=== PATIENT | female | born 1985 | race Caucasian/White ===

== ENCOUNTER 2016-12-09 11:15 | Day surgery (SDC) | payer MEDICAID ==
[~2016-12-09 11:15] MED LIST: PROPOFOL INJ 200 MG/20 ML VIAL IV ONE
--- NOTE | 2016-12-09 12:32 | Operative Report ---
Operative Report DATE OF SURGERY: 12/09/16 Operative Report: The risks benefits and alternatives of the procedure explained to the patient in detail and informed consent is obtained that GIF Olympus video scope was inserted into the patient's mouth and hypopharynx the esophagus is identified intubated and insufflated the scope was then advanced through the esophagus stomach and duodenum retroflexion maneuver is done the esophagus stomach and first and second portions of the duodenum examined PREOPERATIVE DIAGNOSIS: Dysphagia POSTOPERATIVE DIAGNOSIS: Esophagitis, esophageal ulcer with slight stricturing explaining the dysphagia. However the scope was able to pass through the junction no dilation needed to be done. Possible paraesophageal hernia. Gastritis. Duodenitis. Mucosal specimens obtained in the stomach rule out Helicobacter pylori OPERATION: EGD with biopsy SURGEON: KERA AYALA ANESTHESIA: LMAC TISSUE REMOVED OR ALTERED: As noted above COMPLICATIONS: None. ESTIMATED BLOOD LOSS: none INTRAOPERATIVE FINDINGS: No esophageal masses,. No esophageal rings or furrows noted. PROCEDURE: Patient tolerated the procedure well. No immediate postprocedure complications are noted. Patient is discharged in good condition. Discharge date 12/09/2016. Discharge diet: Regular. Discharge activity: Regular. 2-3 week follow-up to discuss findings. We will await on biopsies. Patient is instructed to call the office or proceed to the emergency room should there be any further polyps or questions. She may need upper GI series to confirm unusual anatomy, may need referral for surgery
[2016-12-09 12:50] VITALS: BP 121/92
== END 2016-12-09 12:48 | disposition home or self-care (01) ==
LOC: END 11:15
PROVIDERS: ATTEND Internal Medicine Gastroenterology
PROC: 0DB68ZX Excision of Stomach, Via Natural or Artificial Opening Endoscopic, Diagnostic (ICD-10-PCS; principal; 2016-12-09 14:00)
DX: K29.50 Unspecified chronic gastritis without bleeding (principal); K22.10 Ulcer of esophagus without bleeding; K22.2 Esophageal obstruction; K29.60 Other gastritis without bleeding; E06.3 Autoimmune thyroiditis; I10 Essential (primary) hypertension; E07.9 Disorder of thyroid, unspecified; Z79.899 Other long term (current) drug therapy
CPT/HCPCS: 43239; 88342 ×2; 88305 ×2; J2704; 740

== ENCOUNTER → 2016-12-25 | Outpatient (CLI) | payer MEDICAID | LOC: RAD 12:42 | PROVIDERS: ATTEND Family Medicine | DX: R13.10 Dysphagia, unspecified (principal); E06.5 Other chronic thyroiditis | CPT/HCPCS: 76536 ==

== ENCOUNTER 2017-10-21 11:04 | Emergency (ER) | payer MEDICAID ==
[2017-10-21 11:52] VITALS: BP 134/97
--- NOTE | 2017-10-21 11:57 | ER Document Report ---
ED General - General Chief Complaint: Flu Symptoms Stated Complaint: FLU SYMPTOMS Time Seen by Provider: 10/21/17 11:51 Notes: 32-year-old female here with complaints of cough sore throat body aches fevers chills ongoing for the past 5 days. She was diagnosed with influenza by her primary care doctor's office and was told to alternate Motrin and Tylenol for fever which she has been doing. Since she has been alternating these 2 medicines, her fevers have resolved. She is here today because she is having worsening of her symptoms. No vomiting diarrhea abdominal pain shortness of breath. TRAVEL OUTSIDE OF THE [place] IN LAST 30 DAYS: No - Related Data Allergies/Adverse Reactions: No Known Allergies Allergy (Verified 10/21/17 11:05) Past Medical History - Social History Smoking Status: Current Every Day Smoker Family History: Reviewed & Not Pertinent Patient has suicidal ideation: No Patient has homicidal ideation: No - Past Medical History Cardiac Medical History: Reports: Hx Hypertension - no meds Denies: Hx Coronary Artery Disease, Hx Heart Attack, Hx Heart Murmur Pulmonary Medical History: Denies: Hx Asthma, Hx Bronchitis, Hx COPD, Hx Pneumonia Neurological Medical History: Reports: Hx Migraine. Denies: Hx Cerebrovascular Accident, Hx Seizures Renal/ Medical History: Reports: Hx Kidney Stones - HX. Denies: Hx Peritoneal Dialysis GI Medical History: Reports: Hx Gastroesophageal Reflux Disease, Hx Hiatal Hernia. Denies: Hx Ulcer Musculoskeltal Medical History: Denies Hx Arthritis Psychiatric Medical History: Reports: Hx Depression Denies: Hx Bipolar Disorder, Hx Post Traumatic Stress Disorder, Hx Schizophrenia Infectious Medical History: Denies: Hx HIV Past Surgical History: Reports: Hx Section, Hx Gynecologic Surgery - D+ C, Hx Orthopedic Surgery - R ACL REPAIR. Denies: Hx Hysterectomy, Hx Pacemaker - Immunizations Hx Diphtheria, Pertussis, Tetanus Vaccination: Yes Review of Systems - Review of Systems Notes: See history of present illness for pertinent positive review of systems; otherwise all review of systems have been reviewed and are negative Physical Exam - Vital signs Vitals: Temp Pulse Resp BP Pulse Ox 98.4 F 109 H 20 136/96 H 96 10/21/17 11:14 10/21/17 11:14 10/21/17 11:14 10/21/17 11:14 10/21/17 11:14 - Notes Notes: PHYSICAL EXAMINATION: GENERAL: Appears as if she feels unwell, however in no acute distress. HEAD: Atraumatic, normocephalic. EYES: Pupils equal round and reactive to light, extraocular movements intact, sclera anicteric, conjunctiva are normal. ENT: nares patent, oropharynx clear without exudates. Moist mucous membranes. NECK: Normal range of motion, supple without lymphadenopathy (cervical submandibular submental occipital) LUNGS: CTAB and equal. No wheezes rales or rhonchi. HEART: Minimally tachycardic rate and regular rhythm without murmurs ABDOMEN: Soft, no tenderness. No guarding, no rebound EXTREMITIES: Normal range of motion, no pitting edema. No cyanosis. NEUROLOGICAL: Cranial nerves grossly intact. Normal sensory/motor exams. PSYCH: Normal mood, normal affect. SKIN: Warm, Dry, normal turgor, no rashes or lesions noted Course - Re-evaluation Re-evalutation: 10/21/17 11:57 MEDICAL DECISION MAKING: Concern for upper respiratory infection, most likely viral Instructed patient on fever control with Tylenol and/or (if applicable) Motrin Also discussed keeping hydrated with water or Gatorade Instructed follow-up PCP next day or few Patient understands and agrees to the plan of care - Vital Signs Vital signs: Temp Pulse Resp BP Pulse Ox 99.6 F 109 H 16 134/97 H 98 10/21/17 11:51 10/21/17 11:51 10/21/17 11:51 10/21/17 11:51 10/21/17 11:51 Discharge - Discharge Clinical Impression: Flu-like symptoms Condition: Good Disposition: HOME, SELF-CARE Additional Instructions: You have an upper respiratory infection, most likely viral. Control fever with Motrin and Tylenol. Another option is you may control the fever with Tylenol and meloxicam however do not use meloxicam and Motrin at the same time. The meloxicam is a strong pain medicine. The Tessalon is prescription strength cough medicine. Stay hydrated. You were seen in the emergency department at [facility]. If you were given any sedating medications, be sure not to operate heavy machinery (example - driving) and be sure you are not too sedated to walk appropriately. Please followup with your primary physician in the next few days for further management/evaluation. Please return to the emergency department for worsening of symptoms or any symptom that you deem to be concerning or life-threatening. Thank you for allowing us to be part of your care. Prescriptions: Benzonatate [Tessalon Perle 100 mg Capsule] 100 mg PO Q8HP PRN #40 cap PRN Reason: Meloxicam [Mobic] 15 mg PO DAILY #7 tablet
== END 2017-10-21 11:56 | disposition home or self-care (01) ==
LOC: ER 11:04
DX: R05 Cough (principal); J02.9 Acute pharyngitis, unspecified; R50.9 Fever, unspecified; R00.0 Tachycardia, unspecified; I10 Essential (primary) hypertension; F17.200 Nicotine dependence, unspecified, uncomplicated
CPT/HCPCS: 99283

== ENCOUNTER → 2017-10-26 | Outpatient (CLI) | payer MEDICAID ==
[2017-10-26 16:59] LABS: ABSOLUTE EOSINOPHILS # (AUTO) 0.1 10^3/uL (0.0-0.6); ABSOLUTE LYMPHOCYTES (AUTO) 2.1 10^3/uL (0.5-4.7); ABSOLUTE MONOCYTES (AUTO) 0.5 10^3/uL (0.1-1.4); ABSOLUTE NEUT (AUTO) 5.3 10^3/uL (1.7-8.2); BASOPHILS % (AUTO) 0.5 % (0-2); EOSINOPHILS % (AUTO) 0.6 % (0-6); HEMATOCRIT 43.8 % (36.0-47.0); HEMOGLOBIN 14.5 g/dL (12.0-15.5); LYMPHOCYTES % (AUTO) 26.5 % (13-45); MEAN CORPUSCULAR HEMOGLOBIN 28.9 pg (27.0-33.4); MEAN CORPUSCULAR HGB CONC 33.2 g/dL (32.0-36.0); MEAN CORPUSCULAR VOLUME 87 fl (80-97); MONOCYTES % (AUTO) 6.6 % (3-13); PLATELET COUNT 367 10^3/uL (150-450); RED BLOOD COUNT 5.02 10^6/uL (3.72-5.28); RED CELL DISTRIBUTION WIDTH 13.2 % (11.5-14.0); SEGMENTED NEUTROPHILS % (AUTO) 65.8 % (42-78); TOTAL CELLS COUNTED % (AUTO) 100 %; WHITE BLOOD COUNT 8.1 10^3/uL (4.0-10.5)
[2017-10-26 17:15] LABS: ANION GAP 9 (5-19); BLOOD UREA NITROGEN 14 mg/dL (7-20); CARBON DIOXIDE 26 mmol/L (22-30); CHLORIDE 107 mmol/L (98-107); GLUCOSE 113 mg/dL (75-110); POTASSIUM 3.9 mmol/L (3.6-5.0); SODIUM 142.1 mmol/L (137-145)
[2017-10-26 17:28] LABS: A TYPE INFLUENZA AG NEGATIVE (NEGATIVE); B INFLUENZA AG NEGATIVE (NEGATIVE)
--- NOTE | 2017-10-26 17:29 | RADIOLOGY REPORT (SQ) ---
EXAM DESCRIPTION: CHEST PA/LAT COMPLETED DATE/TIME: 10/26/2017 5:13 pm REASON FOR STUDY: RESPIRATORY DISTRESS COMPARISON: None. TECHNIQUE: Frontal and lateral radiographic views of the chest acquired. NUMBER OF VIEWS: Two view. LIMITATIONS: None. FINDINGS: LUNGS AND PLEURA: No opacities, masses or pneumothorax. No pleural effusion. MEDIASTINUM AND HILAR STRUCTURES: No masses or contour abnormalities. HEART AND VASCULAR STRUCTURES: Heart normal size. No evidence for failure. BONES: No acute findings. HARDWARE: None in the chest. OTHER: No other significant finding. IMPRESSION: NO SIGNIFICANT RADIOGRAPHIC FINDING IN THE CHEST. TECHNICAL DOCUMENTATION: JOB ID: [id number] [employer]- All Rights Reserved
== END ==
LOC: LAB 16:27
PROVIDERS: ATTEND Emergency Medicine
DX: R06.03 Acute respiratory distress (principal); R07.81 Pleurodynia
CPT/HCPCS: 36415; 71046; 80048; 85025; 87804

== ENCOUNTER 2017-10-28 08:48 | Observation (INO) | payer MEDICAID ==
[2017-10-28] MEDS ORDERED: NORMAL SALINE 1000 ML 1,000 ML IV ONE (09:03)
--- NOTE | 2017-10-28 09:16 | ER Document Report ---
ED General - General Chief Complaint: Upper Abdominal Pain Stated Complaint: ABDOMINAL PAIN Time Seen by Provider: 10/28/17 09:03 Notes: Patient complains of left upper quadrant pain. She has been having intermittent left upper quadrant pain with coughing since she was diagnosed with the flu a few days ago. She does not denies chest pain but feels like it is making her short of breath. This morning she had a coughing fit and it felt "very warm and washed over me with extreme pain." She took a Valium after that. She has been treated with amoxicillin clavulanic acid for unknown bacterial infection but says that her chest x-ray at the clinic was normal. She has a remote history of abdominal hernia on the opposite side but no other abdominal problems. She vomited once this morning and it looks pink but she has just had cough syrup and she denies hematemesis melena or bright red blood per rectum. EMS brought her in. Her blood pressure on arrival to the room was 70 systolic. History of tubal ligation TRAVEL OUTSIDE OF THE [place] IN LAST 30 DAYS: No - Related Data Allergies/Adverse Reactions: Sulfa (Sulfonamide Antibiotics) Adverse Reaction (Mild, Verified 10/28/17 08:52) Nausea Past Medical History - Social History Smoking Status: Current Every Day Smoker Smoking Education Provided: Yes - The patient ED visit today was directly related to their abuse of tobacco. Family History: Reviewed & Not Pertinent - Past Medical History Cardiac Medical History: Reports: Hx Hypertension - no meds Denies: Hx Coronary Artery Disease, Hx Heart Attack, Hx Heart Murmur Pulmonary Medical History: Denies: Hx Asthma, Hx Bronchitis, Hx COPD, Hx Pneumonia Neurological Medical History: Reports: Hx Migraine. Denies: Hx Cerebrovascular Accident, Hx Seizures Renal/ Medical History: Reports: Hx Kidney Stones - HX. Denies: Hx Peritoneal Dialysis GI Medical History: Reports: Hx Gastroesophageal Reflux Disease, Hx Hiatal Hernia. Denies: Hx Ulcer Musculoskeltal Medical History: Denies Hx Arthritis Psychiatric Medical History: Reports: Hx Depression Denies: Hx Bipolar Disorder, Hx Post Traumatic Stress Disorder, Hx Schizophrenia Infectious Medical History: Denies: Hx HIV Past Surgical History: Reports: Hx Section, Hx Gynecologic Surgery - D+ C, Hx Orthopedic Surgery - R ACL REPAIR. Denies: Hx Hysterectomy, Hx Pacemaker - Immunizations Hx Diphtheria, Pertussis, Tetanus Vaccination: Yes Review of Systems - Review of Systems Notes: REVIEW OF SYSTEMS GEN: Denies fever, chills, weight loss ENT: Denies sore throat, nasal discharge, ear pain EYES: Denies blurry vision, eye pain, discharge CV: Denies chest pain, palpitations, edema RESP: Cough shortness of breath no wheezing GI: Left upper abdominal pain, vomiting MSK: Denies joint pain/swelling, edema, SKIN: Denies rash, skin lesions LYMPH: Denies swollen glands/lymph nodes NEURO: Denies headache, focal weakness or numbness, dizziness PSYCH: Denies depression, suicidal or homicidal ideation PHYSICAL EXAMINATION General: Ill-appearing Head: Atraumatic, normocephalic ENT: Mouth normal, oropharynx dry, no exudates or tonsillar enlargement Eyes: Conjunctiva normal, pupils equal, lids normal Neck: No JVD, supple, no guarding CVS: Normal rate, regular rhythm, no murmurs Resp: No resp distress, equal and normal breath sounds bilaterally GI: Nondistended, soft, exquisite epigastric and left upper quadrant tenderness to palpation, no rebound or guarding Ext: No deformities, no edema, normal range of motion in upper and lower ext Back: No CVA or midline TTP Skin: No rash, warm Lymphatic: No lymphadeopathy noted Neuro: Awake, alert. Face symmetric. GCS 15. Physical Exam - Vital signs Vitals: Temp Pulse Resp BP Pulse Ox 97.6 F 75 20 71/44 L 94 10/28/17 08:55 10/28/17 08:55 10/28/17 08:55 10/28/17 08:55 10/28/17 08:55 Course - Re-evaluation Re-evalutation: 10/28/17 09:15 Called to the bedside to evaluate the patient secondary to hypotension. Mental status normal considering she had Valium. Blood pressure at the bedside initially was 70, but is increased to 99 systolic with no intervention. Patient has extreme abdominal tenderness. It is left-sided. Differential includes gastritis GI bleed, perforation, traumatic injury such as rectus or abdominal wall hematoma less likely pneumothorax or PE given no chest pain per se, normal breath sounds. Also could be pneumonia and sepsis given recent flu. Sepsis order set initiated. Type and screen added. Chest x-ray will be ordered. IV fluid empirically. 10/28/17 09:58 Ultrasound performed. Ultrasound clearly shows a large left rectus sheath hematoma. No free fluid in the abdomen seen. Spoke with radiology and asked them to get delayed imaging. 10/28/17 11:42 Patient remained hemodynamic Vincent stable. Pain is controlled with fentanyl. CT shows large rectus sheath hematoma with no active extravasation. Discussed with surgical list Dr. Huston who previously indicated he would admit if there is no extravasation. On my second conversation he was in the OR and said that he would come down and see the patient, and I let him not be putting in for an op spread to the surgical floor. - Vital Signs Vital signs: Temp Pulse Resp BP Pulse Ox 97.6 F 75 15 102/76 94 10/28/17 08:55 10/28/17 08:55 10/28/17 09:26 10/28/17 09:26 10/28/17 09:26 - Laboratory Result Diagrams: 10/28/17 09:37 10/28/17 09:37 Laboratory results interpreted by me: 10/28/17 10/28/17 09:37 09:37 WBC 12.7 H Seg Neutrophils % 84.7 H Lymphocytes % 11.2 L Absolute Neutrophils 10.7 H Glucose 169 H ALT 58 H - Diagnostic Test Radiology reviewed: Image reviewed, Reports reviewed - EKG Interpretation by Me EKG shows normal: Sinus rhythm Rate: Normal Rhythm: NSR When compared to previous EKG there are: Previous EKG unavailable - There are T- wave inversions in V3 V4 V5 and V6. There are no ST elevations. There is no ST depression. Procedures - Ultrasound/Bedside Ultrasound/Bedside Time completed: 09:56 Ultrasound: Abnormal aorta Notes: 10/28/17 09:58 No abdominal free fluid. Large left rectus sheath hematoma with mixed density hypoechoic hyperechoic fluid Critical Care Note - Critical Care Note Total time excluding time spent on procedures (mins): 33 Comments: The above patient is critically ill. Not including procedures, but including direct re-evaluations, speaking with patient and/or consultants, interpreting results, and documenting, I spent the total amount of minute listed listed above on critical care time Discharge - Discharge Clinical Impression: Traumatic rectus hematoma Qualifiers: Encounter type: initial encounter Qualified Code(s): S30.1XXA - Contusion of abdominal wall, initial encounter Condition: Fair Disposition: ADMITTED OBSERVATION Admitting Provider: Surgicalist Unit Admitted: Surgical Floor
[2017-10-28 09:53] LABS: VENOUS BLOOD BASE EXCESS -1.4 mmol/L; VENOUS BLOOD HCO3 25.9 mmol/L (20-32); VENOUS BLOOD PCO2 54.4 mmHg (35-63); VENOUS BLOOD PH 7.3 (7.30-7.42)
[2017-10-28 09:54] LABS: ABSOLUTE EOSINOPHILS # (AUTO) 0.1 10^3/uL (0.0-0.6); ABSOLUTE LYMPHOCYTES (AUTO) 1.4 10^3/uL (0.5-4.7); ABSOLUTE MONOCYTES (AUTO) 0.4 10^3/uL (0.1-1.4); ABSOLUTE NEUT (AUTO) 10.7 10^3/uL (1.7-8.2); BASOPHILS % (AUTO) 0.2 % (0-2); EOSINOPHILS % (AUTO) 0.6 % (0-6); HEMATOCRIT 38.9 % (36.0-47.0); HEMOGLOBIN 12.9 g/dL (12.0-15.5); LYMPHOCYTES % (AUTO) 11.2 % (13-45); MEAN CORPUSCULAR HEMOGLOBIN 29.2 pg (27.0-33.4); MEAN CORPUSCULAR HGB CONC 33.1 g/dL (32.0-36.0); MEAN CORPUSCULAR VOLUME 88 fl (80-97); MONOCYTES % (AUTO) 3.3 % (3-13); PLATELET COUNT 426 10^3/uL (150-450); RED CELL DISTRIBUTION WIDTH 13.2 % (11.5-14.0); SEGMENTED NEUTROPHILS % (AUTO) 84.7 % (42-78); TOTAL CELLS COUNTED % (AUTO) 100 %; WHITE BLOOD COUNT 12.7 10^3/uL (4.0-10.5)
[2017-10-28 09:59] LABS: PROTHROMBIN TIME 12.8 SEC (11.4-15.4)
[2017-10-28] MEDS ORDERED: FENTANYL CITRATE INJ/PF 100 MCG/2 ML AMPUL IV ONE (10:08)
[2017-10-28 10:14] LABS: ALANINE AMINOTRANSFERASE 58 U/L (9-52); ALBUMIN 3.8 g/dL (3.5-5.0); ALKALINE PHOSPHATASE 115 U/L (38-126); ANION GAP 12 (5-19); ASPARTATE AMINO TRANSFERASE 29 U/L (14-36); BILIRUBIN,DIRECT 0.1 mg/dL (0.0-0.4); BILIRUBIN,TOTAL 0.3 mg/dL (0.2-1.3); BLOOD UREA NITROGEN 11 mg/dL (7-20); CALCIUM 8.9 mg/dL (8.4-10.2); CARBON DIOXIDE 23 mmol/L (22-30); CHLORIDE 105 mmol/L (98-107); GLUCOSE 169 mg/dL (75-110); SODIUM 139.7 mmol/L (137-145); TOTAL PROTEIN 6.3 g/dL (6.3-8.2)
--- NOTE | 2017-10-28 10:28 | RADIOLOGY REPORT (SQ) ---
EXAM DESCRIPTION: CHEST SINGLE VIEW COMPLETED DATE/TIME: 10/28/2017 10:17 am REASON FOR STUDY: h/o PNA, hypoxia COMPARISON: 10/26/2017 EXAM PARAMETERS: NUMBER OF VIEWS: One view. TECHNIQUE: Single frontal radiographic view of the chest acquired. RADIATION DOSE: NA LIMITATIONS: None. FINDINGS: LUNGS AND PLEURA: No opacities, masses or pneumothorax. No pleural effusion. MEDIASTINUM AND HILAR STRUCTURES: No masses. Contour normal. HEART AND VASCULAR STRUCTURES: Heart normal in size. Normal vasculature. BONES: No acute findings. HARDWARE: None in the chest. OTHER: No other significant finding. IMPRESSION: NO ACUTE RADIOGRAPHIC FINDING IN THE CHEST. TECHNICAL DOCUMENTATION: JOB ID: [id number] [employer]- All Rights Reserved
--- NOTE | 2017-10-28 11:18 | RADIOLOGY REPORT (SQ) ---
EXAM DESCRIPTION: CT ABD/PELVIS WITH IV ONLY COMPLETED DATE/TIME: 10/28/2017 11:05 am REASON FOR STUDY: LUQ PAIN< HYPOTENSION COMPARISON: None. TECHNIQUE: CT scan of the abdomen and pelvis performed using helical scanning technique with dynamic intravenous contrast injection. No oral contrast. Images reviewed with lung, soft tissue, and bone windows. Reconstructed coronal and sagittal MPR images reviewed. Delayed images for evaluation of the urinary system also acquired. All images stored on PACS. All CT scanners at this facility use dose modulation, iterative reconstruction, and/or weight based d osing when appropriate to reduce radiation dose to as low as reasonably achievable (ALARA). [facility]: Dose Right [facility]: CareDose [facility]: Dose Right [facility]: Teradose 4D [facility]: [employer] CONTRAST TYPE AND DOSE: contrast/concentration: Isovue 370.00 mg/ml; Total Contrast Delivered: 99.0 ml; Total Saline Delivered: 62.1 ml RENAL FUNCTION: BUN 11 creatinine 0.82. RADIATION DOSE: CT Rad equipment meets quality standard of care and radiation dose reduction techniq ues were employed. CTDIvol: 18.6 - 20.5 mGy. DLP: 3667 mGy-cm.. LIMITATIONS: None. FINDINGS: LOWER CHEST: No significant findings. No nodules or infiltrates. LIVER: Normal size. No masses. No dilated ducts. SPLEEN: Normal size. No focal lesions. PANCREAS: No masses. No significant calcifications. No adjacent inflammation or peripancreatic fluid collections. Pancreatic duct not dilated. GALLBLADDER: No identified stones by CT criteria. No inflammatory changes to suggest cholecystitis. ADRENAL GLANDS: No significant masses or asymmetry. RIGHT KIDNEY AND URETER: No solid masses. No significant calcifications. No hydronephrosis or hyd roureter. LEFT KIDNEY AND URETER: No solid masses. No significant calcifications. No hydronephrosis or hydr oureter. AORTA AND VESSELS: No aneurysm. No dissection. Renal arteries, SMA, celiac without stenosis. RETROPERITONEUM: No retroperitoneal adenopathy, hemorrhage or masses. BOWEL AND PERITONEAL CAVITY: No masses or inflammatory changes. No free fluid or peritoneal masses. APPENDIX: Normal. PELVIS: No mass. No free fluid. Normal bladder. ABDOMINAL WALL: Large hematoma in the left rectus sheath. Maximum AP measurement 8 cm, transverse me asurement 12.5 cm, and craniocaudal measurement 22 cm. No hernias. BONES: No significant or acute findings. OTHER: No other significant finding. IMPRESSION: LARGE LEFT RECTUS SHEATH HEMATOMA. NO OTHER SIGNIFICANT OR ACUTE FINDING IN THE ABDOMEN OR PELVIS ON CT SCAN WITH IV CONTRAST. TECHNICAL DOCUMENTATION: JOB ID: [id number] Quality ID # [id number]: Final reports with documentation of one or more dose reduction techniques (e.g., Au tomated exposure control, adjustment of the mA and/or kV according to patient size, use of iterative reconstruction technique) 2010 [employer]- All Rights Reserved
--- NOTE | 2017-10-28 12:31 | EKG REPORT ---
SEVERITY:- ABNORMAL ECG - SINUS RHYTHM NONSPECIFIC T ABNORMALITIES, DIFFUSE LEADS : Confirmed by: Juno Schwarz MD 28-Oct-2017 12:30:20
[2017-10-28 14:33] LABS: ABSOLUTE BASOPHILS # (AUTO) 0.1 10^3/uL (0.0-0.2); ABSOLUTE LYMPHOCYTES (AUTO) 1.4 10^3/uL (0.5-4.7); ABSOLUTE MONOCYTES (AUTO) 0.5 10^3/uL (0.1-1.4); ABSOLUTE NEUT (AUTO) 12.1 10^3/uL (1.7-8.2); BASOPHILS % (AUTO) 0.4 % (0-2); EOSINOPHILS % (AUTO) 0.1 % (0-6); HEMATOCRIT 35.5 % (36.0-47.0); HEMOGLOBIN 11.9 g/dL (12.0-15.5); LYMPHOCYTES % (AUTO) 9.9 % (13-45); MEAN CORPUSCULAR HGB CONC 33.4 g/dL (32.0-36.0); MEAN CORPUSCULAR VOLUME 87 fl (80-97); MONOCYTES % (AUTO) 3.5 % (3-13); PLATELET COUNT 354 10^3/uL (150-450); RED BLOOD COUNT 4.09 10^6/uL (3.72-5.28); RED CELL DISTRIBUTION WIDTH 13.4 % (11.5-14.0); SEGMENTED NEUTROPHILS % (AUTO) 86.1 % (42-78); TOTAL CELLS COUNTED % (AUTO) 100 %; WHITE BLOOD COUNT 14.1 10^3/uL (4.0-10.5)
[2017-10-28] MEDS ORDERED: HYDROMORPHONE HCL INJ/PF 2 MG/ML AMPULE IV ONE (15:59)
--- NOTE | 2017-10-28 16:50 | PDOC CONSULTATION ---
Consultation Consult Date: 10/28/17 Consult reason:: rectus sheath hematoma History of Present Illness Admission Date/PCP: 10/28/17 11:54 History of Present Illness: ROSS ROMERO is a 32 year old female with a hx of flu symptoms x 1 week; for the past 2 days she has been experiencing left uppr abdominal pain. This morning has had a strong bout of cough and she noted a more intense pain in the same area. She came to the ER this AM and a CT scan A/P was done significant for a left rectal sheath hematoma with no active bleeding or extravasation Past Medical History Cardiac Medical History: Reports: Hypertension - no meds Denies: Coronary Artery Disease, Myocardial Infarction, Heart Murmur Pulmonary Medical History: Denies: Asthma, Bronchitis, Chronic Obstructive Pulmonary Disease (COPD), Pneumonia Neurological Medical History: Reports: Migraine Denies: Seizures GI Medical History: Reports: Gastroesophageal Reflux Disease, Hiatal Hernia Musculoskeltal Medical History: Denies: Arthritis Psychiatric Medical History: Reports: Depression Denies: Bipolar Disorder, Post Traumatic Stress Disorder Hematology: Reports: Anemia Denies: Hemophilia, Sickle Cell Disease Infectious Medical History: Denies: HIV Past Surgical History Past Surgical History: Reports: Section, Orthopedic Surgery - R ACL REPAIR Denies: Hysterectomy, Pacemaker Social History Smoking Status: Current Every Day Smoker Family History Family History: Reviewed & Not Pertinent Parental Family History Reviewed: Yes Children Family History Reviewed: Yes Sibling(s) Family History Reviewed.: Yes Medication/Allergy Home Medications: Buspirone HCl [Buspar 10 mg Tablet] 10 mg PO Q12 10/28/17 Diazepam [Valium 5 mg Tablet] 5 mg PO Q12HP PRN 10/28/17 Levothyroxine Sodium [Synthroid 0.075 mg Tablet] 0.075 mg PO DAILY 10/28/17 Prazosin HCl [Minipress] 1 mg PO QHS 10/28/17 Promethazine HCl [Phenergan 25 mg Tablet] 25 mg PO Q6HP PRN 10/28/17 Temazepam [Restoril] 30 mg PO HSP PRN 10/28/17 Vortioxetine Hydrobromide [Trintellix] 20 mg PO DAILY 10/28/17 Allergies/Adverse Reactions: Sulfa (Sulfonamide Antibiotics) Adverse Reaction (Mild, Verified 10/28/17 08:52) Nausea Physical Exam Vital Signs: Temp Pulse Resp BP Pulse Ox 97.6 F 75 14 111/75 96 10/28/17 08:55 10/28/17 08:55 10/28/17 14:01 10/28/17 14:00 10/28/17 15:00 General appearance: PRESENT: no acute distress, obese Neck exam: PRESENT: full ROM Respiratory exam: PRESENT: clear to auscultation molly Cardiovascular exam: PRESENT: RRR GI/Abdominal exam: PRESENT: soft, tenderness - left upper quadrant Results Laboratory Results: 10/28/17 14:15 10/28/17 14:15 WBC 14.1 H RBC 4.09 Hgb 11.9 L Hct 35.5 L MCV 87 MCH 29.0 MCHC 33.4 RDW 13.4 Plt Count 354 Seg Neutrophils % 86.1 H Lymphocytes % 9.9 L Monocytes % 3.5 Eosinophils % 0.1 Basophils % 0.4 Absolute Neutrophils 12.1 H Absolute Lymphocytes 1.4 Absolute Monocytes 0.5 Absolute Eosinophils 0.0 Absolute Basophils 0.1 Impressions: Chest X-Ray 10/28/17 09:13 IMPRESSION: NO ACUTE RADIOGRAPHIC FINDING IN THE CHEST. Abdomen/Pelvis CT 10/28/17 09:16 IMPRESSION: LARGE LEFT RECTUS SHEATH HEMATOMA. NO OTHER SIGNIFICANT OR ACUTE FINDING IN THE ABDOMEN OR PELVIS ON CT SCAN WITH IV CONTRAST. Assessment & Plan - Plan Summary Plan Summary: A/ Left Rectus sheath hematoma, stable on CT: no active vessel extravasation or "blush" seen patient hemodynamically stable at this timne H/H 12.9/38.9 on admission, H/H 11/9/35.5 after 6 hours P/ As all these confined rectus hematoma invariably stop on their own there is no real treatment Recommend: discharge to home bed rest as tolerated avoid narcotics, Tylenol prn for pain polus ice packs avoid straining/lifting x 2 weeks no NSAIDS (ASA, Motrin, Aleve) Avoid constipation with Miralax or MOM
[2017-10-28] MEDS ORDERED: ONDANSETRON HCL INJ/PF 4 MG/2 ML SDV IV PRN (18:10)
[2017-10-28] MEDS ORDERED: ACETAMINOPHEN 325 MG TABLET PO PRN (18:10)
[2017-10-28] MEDS ORDERED: PROMETHAZINE HCL 25 MG TABLET PO PRN (18:14)
--- NOTE | 2017-10-28 18:33 | PDOC H&P ---
History of Present Illness Admission Date/PCP: 10/28/17 11:54 No PCP Patient complains of: abdominal pain History of Present Illness: ROSS ROMERO is a 32 year old female with PMH significant for hypothyroidism, PTSD, and anxiety who presents to the ED for severe abdominal pain. For over last 2-3 weeks, she has been having flu like symptoms including chills, myalagias, and poor PO intake. Five days ago she presented to urgent care for worsening symptomology. At that time she was having left upper quadrant pain. Was thought to be due to PNA however CXR was negative. She was discharged to home with antibiotic script. Continued to have abdominal pain over the weekend. Yesterday, patient actually began to feel better. She had full meal. This AM while going to the bathroom, she had a coughing bout and developed extreme left sided abdominal pain. She had an episode of nausea and vomiting. She laid down to rest however did not have improvement in pain. She ended up coming to the ED for evaluation. In ED, CT scan A/P revealed a large left rectal sheath hematoma with no active bleeding or extravasation. Her baseline Hg is ~14 and at presentation was 12.7. Admitted to hospitalist service for pain management and monitoring of H&H. Past Medical History Cardiac Medical History: Reports: Hypertension - no meds Denies: Coronary Artery Disease, Myocardial Infarction, Heart Murmur Pulmonary Medical History: Denies: Asthma, Bronchitis, Chronic Obstructive Pulmonary Disease (COPD), Pneumonia Neurological Medical History: Reports: Migraine Denies: Seizures GI Medical History: Reports: Gastroesophageal Reflux Disease, Hiatal Hernia Musculoskeltal Medical History: Denies: Arthritis Psychiatric Medical History: Reports: Depression Denies: Bipolar Disorder, Post Traumatic Stress Disorder Hematology: Reports: Anemia Denies: Hemophilia, Sickle Cell Disease Infectious Medical History: Denies: HIV Past Surgical History Past Surgical History: Reports: Section, Orthopedic Surgery - R ACL REPAIR Denies: Hysterectomy, Pacemaker Social History Information Source: Patient Smoking Status: Current Every Day Smoker Frequency of Alcohol Use: Occasional Hx Recreational Drug Use: No - Advance Directive Resuscitation Status: Full Code Family History Family History: Reviewed & Not Pertinent Parental Family History Reviewed: No Children Family History Reviewed: NA Sibling(s) Family History Reviewed.: NA Medication/Allergy Home Medications: Buspirone HCl [Buspar 10 mg Tablet] 10 mg PO Q12 10/28/17 Diazepam [Valium 5 mg Tablet] 5 mg PO Q12HP PRN 10/28/17 Levothyroxine Sodium [Synthroid 0.075 mg Tablet] 0.075 mg PO DAILY 10/28/17 Prazosin HCl [Minipress] 1 mg PO QHS 10/28/17 Promethazine HCl [Phenergan 25 mg Tablet] 25 mg PO Q6HP PRN 10/28/17 Temazepam [Restoril] 30 mg PO HSP PRN 10/28/17 Vortioxetine Hydrobromide [Trintellix] 20 mg PO DAILY 10/28/17 Allergies/Adverse Reactions: Sulfa (Sulfonamide Antibiotics) Adverse Reaction (Mild, Verified 10/28/17 08:52) Nausea Review of Systems All systems: reviewed and no additional remarkable complaints except as stated Physical Exam Vital Signs: Temp Pulse Resp BP Pulse Ox 98.3 F 75 14 114/83 96 10/28/17 16:56 10/28/17 08:55 10/28/17 16:56 10/28/17 16:56 10/28/17 16:56 General appearance: PRESENT: no acute distress, obese, well-developed, well- nourished Head exam: PRESENT: atraumatic, normocephalic Eye exam: PRESENT: EOMI Mouth exam: PRESENT: moist Neck exam: PRESENT: full ROM Respiratory exam: PRESENT: symmetrical, unlabored Cardiovascular exam: PRESENT: RRR, +S1, +S2 GI/Abdominal exam: PRESENT: tenderness - LUQ pain. ABSENT: distended Neurological exam: PRESENT: alert, awake, oriented to person, oriented to place , oriented to time, CN II-XII grossly intact Psychiatric exam: PRESENT: normal mood Skin exam: PRESENT: dry, warm Results Laboratory Results: 10/28/17 14:15 10/28/17 10/28/17 14:15 16:24 WBC 14.1 H RBC 4.09 Hgb 11.9 L Hct 35.5 L MCV 87 MCH 29.0 MCHC 33.4 RDW 13.4 Plt Count 354 Seg Neutrophils % 86.1 H Lymphocytes % 9.9 L Monocytes % 3.5 Eosinophils % 0.1 Basophils % 0.4 Absolute Neutrophils 12.1 H Absolute Lymphocytes 1.4 Absolute Monocytes 0.5 Absolute Eosinophils 0.0 Absolute Basophils 0.1 Lactic Acid 1.1 Impressions: Chest X-Ray 10/28/17 09:13 IMPRESSION: NO ACUTE RADIOGRAPHIC FINDING IN THE CHEST. Abdomen/Pelvis CT 10/28/17 09:16 IMPRESSION: LARGE LEFT RECTUS SHEATH HEMATOMA. NO OTHER SIGNIFICANT OR ACUTE FINDING IN THE ABDOMEN OR PELVIS ON CT SCAN WITH IV CONTRAST. Assessment & Plan - Diagnosis (1) Traumatic rectus hematoma Qualifiers: Encounter type: initial encounter Qualified Code(s): S30.1XXA - Contusion of abdominal wall, initial encounter Is this a current diagnosis for this admission?: Yes Plan: Most likely precipitated by coughing fit today. CT without extravasation - Seen by surgery in ED today, no surgical management - Has been HDS - Continue to monitor, recheck CBC in AM - LIkely d/c in AM if counts are stable (2) Anemia Qualifiers: Anemia type: other cause Other causes of anemia: other cause, not classified Qualified Code(s): D64.89 - Other specified anemias Plan: Acute blood loss anemia, due to large left rectus sheath hematoma - Repeat H&H in ED with improvement, currently 14.1 - Will check H&H in AM - PLan per above (3) PTSD (post-traumatic stress disorder) Is this a current diagnosis for this admission?: Yes Plan: Continue home medications. - Time Time Spent: 50 to 70 Minutes Anticipated discharge: Home Within: within 24 hours
[2017-10-28] MEDS: OXYCODONE-ACETAMINOPHEN 5-325 MG TABLET PO PRN (19:56)
[2017-10-28] MEDS: BUSPIRONE HCL 10 MG TABLET PO SCH (21:53)
[2017-10-28] MEDS: DIAZEPAM 5 MG TABLET PO PRN (21:53)
[2017-10-28 22:36] LABS: AMORPHOUS SEDIMENT,URINE TRACE /HPF; APPEARANCE,URINE CLOUDY; BILIRUBIN,URINE NEGATIVE (NEGATIVE); COLOR,URINE YELLOW; GLUCOSE, URINE NEGATIVE (NEGATIVE); KETONES,URINE NEGATIVE (NEGATIVE); LEUKOCYTE ESTERASE,URINE SMALL (NEGATIVE); NITRITE,URINE NEGATIVE (NEGATIVE); PROTEIN,URINE NEGATIVE (NEGATIVE); URINE SPECIFIC GRAVITY 1.038
[2017-10-29 07:07] LABS: ANION GAP 10 (5-19); BLOOD UREA NITROGEN 13 mg/dL (7-20); CALCIUM 8.8 mg/dL (8.4-10.2); CARBON DIOXIDE 22 mmol/L (22-30); CHLORIDE 106 mmol/L (98-107); GLUCOSE 99 mg/dL (75-110); POTASSIUM 4.4 mmol/L (3.6-5.0); SODIUM 138.3 mmol/L (137-145)
[2017-10-29 07:18] LABS: HEMATOCRIT 30.9 % (36.0-47.0); HEMOGLOBIN 10.4 g/dL (12.0-15.5); MEAN CORPUSCULAR HEMOGLOBIN 29.2 pg (27.0-33.4); MEAN CORPUSCULAR HGB CONC 33.5 g/dL (32.0-36.0); MEAN CORPUSCULAR VOLUME 87 fl (80-97); PLATELET COUNT 276 10^3/uL (150-450); RED BLOOD COUNT 3.55 10^6/uL (3.72-5.28); RED CELL DISTRIBUTION WIDTH 13.3 % (11.5-14.0); WHITE BLOOD COUNT 9.4 10^3/uL (4.0-10.5)
[2017-10-29] MEDS: OXYCODONE-ACETAMINOPHEN 5-325 MG TABLET PO PRN (08:42)
[2017-10-29] MEDS ORDERED: OXYCODONE-ACETAMINOPHEN 5-325 MG TABLET PO PRN ×3 (08:52→09:04)
[2017-10-29] MEDS ORDERED: LEVALBUTEROL HCL NEB 1.25 MG/3 ML AMPUL NEB PRN (09:53)
[2017-10-29] MEDS ORDERED: DOCUSATE SODIUM 100 MG CAPSULE PO SCH ×2 (10:00)
[2017-10-29] MEDS ORDERED: LEVOTHYROXINE SODIUM 0.075 MG TABLET PO SCH (10:00)
[2017-10-29] MEDS: BUSPIRONE HCL 10 MG TABLET PO SCH (10:33)
[2017-10-29] MEDS: DIAZEPAM 5 MG TABLET PO PRN (10:33)
[2017-10-29] MEDS ORDERED: BENZONATATE 100 MG CAPSULE PO SCH (14:00)
[2017-10-29 14:24] LABS: HEMATOCRIT 31.4 % (36.0-47.0); HEMOGLOBIN 10.6 g/dL (12.0-15.5); MEAN CORPUSCULAR HEMOGLOBIN 29.3 pg (27.0-33.4); MEAN CORPUSCULAR HGB CONC 33.7 g/dL (32.0-36.0); MEAN CORPUSCULAR VOLUME 87 fl (80-97); PLATELET COUNT 339 10^3/uL (150-450); RED BLOOD COUNT 3.61 10^6/uL (3.72-5.28); RED CELL DISTRIBUTION WIDTH 13.4 % (11.5-14.0); WHITE BLOOD COUNT 8.6 10^3/uL (4.0-10.5)
--- NOTE | 2017-10-29 14:54 | PDOC DISCHARGE SUMMARY ---
General - Admit/Disc Date/PCP Admission Date/Primary Care Provider: 10/28/17 11:54 Discharge Date: 10/29/17 - Discharge Diagnosis (1) Traumatic rectus hematoma Is this a current diagnosis for this admission?: Yes (2) Anemia Is this a current diagnosis for this admission?: Yes (3) PTSD (post-traumatic stress disorder) Is this a current diagnosis for this admission?: Yes - Additional Information Resuscitation Status: Full Code Discharge Diet: As Tolerated Discharge Activity: Bedrest - for 2 weeks Prescriptions: Benzonatate [Tessalon Perle 100 mg Capsule] 100 mg PO Q8HP PRN #40 cap PRN Reason: Cough Docusate Sodium [Colace 100 mg Capsule] 100 mg PO BID #60 capsule Polyethylene Glycol 3350 [Miralax] 238 gm PO DAILYP PRN #1 powder PRN Reason: constipation Home Medications: Buspirone HCl [Buspar 10 mg Tablet] 10 mg PO Q12 10/28/17 Diazepam [Valium 5 mg Tablet] 5 mg PO Q12HP PRN 10/28/17 Levothyroxine Sodium [Synthroid 0.075 mg Tablet] 0.075 mg PO DAILY 10/28/17 Prazosin HCl [Minipress] 1 mg PO QHS 10/28/17 Promethazine HCl [Phenergan 25 mg Tablet] 25 mg PO Q6HP PRN 10/28/17 Temazepam [Restoril] 30 mg PO HSP PRN 10/28/17 Vortioxetine Hydrobromide [Trintellix] 20 mg PO DAILY 10/28/17 Acetaminophen [Tylenol 325 mg Tablet] 650 mg PO Q4HP PRN tablet 10/29/17 Benzonatate [Tessalon Perle 100 mg Capsule] 100 mg PO Q8HP PRN #40 cap 10/29/17 Docusate Sodium [Colace 100 mg Capsule] 100 mg PO BID #60 capsule 10/29/17 Polyethylene Glycol 3350 [Miralax] 238 gm PO DAILYP PRN #1 powder 10/29/17 History of Present Illness History of Present Illness: Per H&P by Dr. Hubbard: ROSS ROMERO is a 32 year old female with a PMH significant for hypothyroidism, PTSD, and anxiety who presents to the ED for severe abdominal pain. For over the last 2-3 weeks, she has been having flulike symptoms including chills, myalgias, and poor p.o. intake. 5 days ago she presented to urgent care for worsening symptomatology. At the time she was having left upper quadrant pain. Was thought to be due to pneumonia however chest x-ray was negative. She was discharged home with antibiotic prescription. Continue to have abdominal pain over the weekend. Yesterday patient actually began to feel better. She had a full meal. This a.m. while going to the bathroom, she had a coughing bout and developed extreme left-sided abdominal pain. She had an episode of nausea and vomiting. She laid down to rest however did not have improvement in pain. She ended up coming to the ED for evaluation. In the ED, CT scan a/P revealed a large left rectal sheath hematoma with no active bleeding or extravasation. Her baseline hemoglobin is about 14 and present was 12.7. Admitted to the hospitalist service for pain management and monitoring of H&H. Hospital Course Hospital Course: The patient was admitted to the medical floor for pain management and monitoring of H&H in relation to a rectal sheath hematoma. The patient's hemoglobin was trended; on admission her hemoglobin was noted to be 12.9 which decreased slightly secondary to hemodilution as the patient received IV fluid boluses. Her hemoglobin is now stable at 10.6. Her vital signs are stable and she has no evidence of active bleeding at this time. Surgery was consulted and did not deem that surgical intervention was necessary as these invariably stop on their own. Surgery recommends bedrest as tolerated for 2 weeks, avoid straining/lifting for 2 weeks, no narcotics or NSAIDs, avoid constipation. They recommend use of Tylenol and ice packs for pain, as well as stool softeners and MiraLAX for constipation prevention. At time of discharge, the patient is in stable condition and tolerating a regular diet. She is provided prescriptions for Colace 100 mg p.o. twice daily , MiraLAX 17 gm daily, and Tessalon Perles 1 capsule every 8 hours as needed cough. To follow-up with her primary care provider within 1-2 weeks. Physical Exam Vital Signs: Temp Pulse Resp BP Pulse Ox 98.2 F 84 18 119/73 93 10/29/17 11:24 10/29/17 11:24 10/29/17 11:24 10/29/17 11:24 10/29/17 11:24 Intake & Output 10/28/17 10/29/17 10/30/17 06:59 06:59 06:59 Intake Total 275 Balance 275 Weight 104.8 kg General appearance: PRESENT: no acute distress, obese, well-developed, well- nourished Head exam: PRESENT: atraumatic, normocephalic Eye exam: PRESENT: conjunctiva pink, EOMI, PERRLA. ABSENT: scleral icterus Ear exam: PRESENT: normal external ear exam Mouth exam: PRESENT: moist, tongue midline Neck exam: ABSENT: carotid bruit, JVD, lymphadenopathy, thyromegaly Respiratory exam: PRESENT: clear to auscultation molly, symmetrical, unlabored. ABSENT: rales, rhonchi, wheezes Cardiovascular exam: PRESENT: RRR, +S1, +S2. ABSENT: diastolic murmur, rubs, systolic murmur, tachycardia Pulses: PRESENT: normal dorsalis pedis pul Vascular exam: PRESENT: normal capillary refill GI/Abdominal exam: PRESENT: normal bowel sounds, soft, tenderness - LUQ. ABSENT : ascites, distended, firm, guarding, mass, organolmegaly, rebound, rigid Rectal exam: PRESENT: deferred Extremities exam: PRESENT: full ROM. ABSENT: calf tenderness, clubbing, pedal edema Neurological exam: PRESENT: alert, awake, oriented to person, oriented to place , oriented to time, oriented to situation, CN II-XII grossly intact. ABSENT: motor sensory deficit Psychiatric exam: PRESENT: appropriate affect, normal mood. ABSENT: homicidal ideation, suicidal ideation Skin exam: PRESENT: dry, intact, warm. ABSENT: cyanosis, rash Results Laboratory Results: 10/29/17 13:47 10/29/17 04:32 10/28/17 10/28/17 10/29/17 16:24 22:20 04:32 WBC 9.4 RBC 3.55 L Hgb 10.4 L Hct 30.9 L MCV 87 MCH 29.2 MCHC 33.5 RDW 13.3 Plt Count 276 Sodium Potassium Chloride Carbon Dioxide Anion Gap BUN Creatinine Est GFR ( Amer) Est GFR (Non-Af Amer) Glucose Lactic Acid 1.1 Calcium Urine Color YELLOW Urine Appearance CLOUDY Urine pH 6.0 Ur Specific [place] 1.038 Urine Protein NEGATIVE Urine Glucose (UA) NEGATIVE Urine Ketones NEGATIVE Urine Blood NEGATIVE Urine Nitrite NEGATIVE Ur Leukocyte Esterase SMALL H Urine WBC (Auto) 7 Urine RBC (Auto) 3 10/29/17 10/29/17 04:32 13:47 WBC 8.6 RBC 3.61 L Hgb 10.6 L Hct 31.4 L MCV 87 MCH 29.3 MCHC 33.7 RDW 13.4 Plt Count 339 Sodium 138.3 Potassium 4.4 Chloride 106 Carbon Dioxide 22 Anion Gap 10 BUN 13 Creatinine 0.79 Est GFR ( Amer) > 60 Est GFR (Non-Af Amer) > 60 Glucose 99 Lactic Acid Calcium 8.8 Urine Color Urine Appearance Urine pH Ur Specific [place] Urine Protein Urine Glucose (UA) Urine Ketones Urine Blood Urine Nitrite Ur Leukocyte Esterase Urine WBC (Auto) Urine RBC (Auto) Impressions: Chest X-Ray 10/28/17 09:13 IMPRESSION: NO ACUTE RADIOGRAPHIC FINDING IN THE CHEST. Abdomen/Pelvis CT 10/28/17 09:16 IMPRESSION: LARGE LEFT RECTUS SHEATH HEMATOMA. NO OTHER SIGNIFICANT OR ACUTE FINDING IN THE ABDOMEN OR PELVIS ON CT SCAN WITH IV CONTRAST. Qualifiers - * PATEINT BEING DISCHARGED WITH ANY OF THE FOLLOWING DIAGNOSIS?: No
[2017-10-29 17:23] VITALS: BP 114/71
[2017-10-30] MEDS ORDERED: LEVOTHYROXINE SODIUM 0.075 MG TABLET PO SCH (06:00)
== END 2017-10-29 18:00 | disposition home or self-care (01) ==
LOC: ER 08:48 → EH 11:54 → 5 21:00
PROVIDERS: ADMIT Emergency Medicine; ATTEND Emergency Medicine
DX: S30.1XXA Contusion of abdominal wall, initial encounter (principal); X58.XXXA Exposure to other specified factors, initial encounter; D64.89 Other specified anemias; F43.10 Post-traumatic stress disorder, unspecified; I95.9 Hypotension, unspecified; E03.9 Hypothyroidism, unspecified; F41.9 Anxiety disorder, unspecified; F17.200 Nicotine dependence, unspecified, uncomplicated; R68.83 Chills (without fever); M79.1 Myalgia; R05 Cough; Z98.51 Tubal ligation status; Z79.899 Other long term (current) drug therapy; Z98.890 Other specified postprocedural states
CPT/HCPCS: 93005; 99291; 96361; 96374; 96375; 86900; 86901; 36415 ×2; 87040; 87086; 86850; 85025; 85027; 85610; 80048; 80053; 81001; 84484; 82803; 83605; 71045; 74177; 93010; J3490 ×8; J3010; J1170; J7030

== ENCOUNTER 2018-01-19 08:32 | Day surgery (SDC) | payer MEDICAID ==
[2018-01-19 10:23] VITALS: BP 127/89
--- NOTE | 2018-01-19 12:33 | Operative Report ---
Operative Report DATE OF SURGERY: 01/19/18 Operative Report: The risks benefits and alternatives of the procedure explained to the patient in detail and informed consent is obtained.A GIF Olympus video scope was inserted into the patient's mouth and hypopharynx, the esophagus is identified intubated and insufflated, the scope was then advanced through the esophagus stomach and duodenum, retroflexion maneuver is done, the esophagus stomach and first and second portions of the duodenum examined PREOPERATIVE DIAGNOSIS: Dysphagia POSTOPERATIVE DIAGNOSIS: Schatzki's ring status post breakage. Gastritis status post biopsy rule out Helicobacter pylori OPERATION: EGD with biopsy SURGEON: KERA AYALA ANESTHESIA: LMAC TISSUE REMOVED OR ALTERED: As noted above. COMPLICATIONS: None. ESTIMATED BLOOD LOSS: None. INTRAOPERATIVE FINDINGS: As noted above. PROCEDURE: Patient tolerated the procedure well. No immediate postprocedure complications are noted. Discharged in good condition. Discharge date 01/19/2018. Discharge diet: Regular. Discharge activity: Regular. 2-3 week follow-up to discuss findings. Patient is instructed to call the office or proceed to the emergency room should there be any further problems or questions. We will wait on pathology.
== END 2018-01-19 10:25 | disposition home or self-care (01) ==
LOC: END 08:32
PROVIDERS: ATTEND Internal Medicine Gastroenterology
DX: K22.2 Esophageal obstruction (principal); K29.70 Gastritis, unspecified, without bleeding; E66.9 Obesity, unspecified; F17.210 Nicotine dependence, cigarettes, uncomplicated; E06.3 Autoimmune thyroiditis; Z88.2 Allergy status to sulfonamides; Z68.39 Body mass index [BMI] 39.0-39.9, adult; Z79.899 Other long term (current) drug therapy
CPT/HCPCS: 43239; 88342 ×2; 88305 ×2; J2704; 731

== ENCOUNTER 2018-02-10 19:55 | Emergency (ER) | payer MEDICAID ==
[2018-02-10] MEDS ORDERED: ASPIRIN 81 MG TABLET, CHEWABLE PO ONE (20:15)
--- NOTE | 2018-02-10 20:20 | ER Document Report ---
ED Medical Screen (RME) - General Chief Complaint: Chest Pain Stated Complaint: CHEST PAIN, NAUSEA Time Seen by Provider: 02/10/18 20:14 Notes: RAPID MEDICAL EVALUATION DISCLOSURE I have seen this patient as part of a Rapid Medical Evaluation and, if applicable, placed any initially appropriate orders. The patient will be seen and fully evaluated, including a full history and physical exam, by a provider ( in Main ED or Fast Track) when a room becomes available. 32-year-old female here with complaints of midsternal chest heaviness/pressure and shortness of breath ongoing for the past few weeks but states that earlier today, it became much more intense. The symptoms have been worse with exertion but not with breathing. She tried taking a Valium thinking it was anxiety however this did not help. She denies any prior history of diagnosed hypertension however states she has been finding her blood pressure to be consistently high. She denies any prior history of MN, DVT, PE. EXAM CTAB RRR TRAVEL OUTSIDE OF THE [place] IN LAST 30 DAYS: No - Related Data Allergies/Adverse Reactions: Sulfa (Sulfonamide Antibiotics) Adverse Reaction (Mild, Verified 01/19/18 08:58) Nausea and Diarrhea Past Medical History - Past Medical History Cardiac Medical History: Reports: Hx Hypertension Denies: Hx Coronary Artery Disease, Hx Heart Attack, Hx Heart Murmur Pulmonary Medical History: Denies: Hx Asthma, Hx Bronchitis, Hx COPD, Hx Pneumonia Neurological Medical History: Reports: Hx Migraine. Denies: Hx Cerebrovascular Accident, Hx Seizures Renal/ Medical History: Reports: Hx Kidney Stones - HX. Denies: Hx Peritoneal Dialysis GI Medical History: Reports: Hx Gastroesophageal Reflux Disease, Hx Hiatal Hernia. Denies: Hx Ulcer Musculoskeltal Medical History: Denies Hx Arthritis Psychiatric Medical History: Reports: Hx Depression - reports anxiety Denies: Hx Bipolar Disorder, Hx Post Traumatic Stress Disorder, Hx Schizophrenia Infectious Medical History: Denies: Hx HIV Past Surgical History: Reports: Hx Section, Hx Gynecologic Surgery - D+ C, Hx Orthopedic Surgery - R ACL REPAIR. Denies: Hx Hysterectomy, Hx Pacemaker - Immunizations Hx Diphtheria, Pertussis, Tetanus Vaccination: Yes History of Influenza Vaccine for 06/2017 - 11/2017 Season: Refused Physical Exam - Vital signs Vitals: Temp Pulse Resp BP Pulse Ox 98.1 F 89 15 163/106 H 97 02/10/18 20:09 02/10/18 20:09 02/10/18 20:09 02/10/18 20:09 02/10/18 20:09 Course - Vital Signs Vital signs: Temp Pulse Resp BP Pulse Ox 98.1 F 89 15 163/106 H 97 02/10/18 20:09 02/10/18 20:09 02/10/18 20:09 02/10/18 20:09 02/10/18 20:09 Doctor's Discharge - Discharge Referrals: MARTHA PADILLA MD [Primary Care Provider] - Follow up as needed
--- NOTE | 2018-02-10 20:45 | RADIOLOGY REPORT (SQ) ---
EXAM DESCRIPTION: CHEST 2 VIEWS COMPLETED DATE/TIME: 02/10/2018 8:35 pm REASON FOR STUDY: CP SOB COMPARISON: 10/26/2017 EXAM PARAMETERS: NUMBER OF VIEWS: two views TECHNIQUE: Digital Frontal and Lateral radiographic views of the chest acquired. RADIATION DOSE: NA LIMITATIONS: none FINDINGS: LUNGS AND PLEURA: No opacities, masses or pneumothorax. No pleural effusion. MEDIASTINUM AND HILAR STRUCTURES: No masses or contour abnormalities. HEART AND VASCULAR STRUCTURES: Heart normal size. No evidence for failure. BONES: No acute findings. HARDWARE: None in the chest. OTHER: No other significant finding. IMPRESSION: NO ACUTE RADIOGRAPHIC FINDING IN THE CHEST. TECHNICAL DOCUMENTATION: JOB ID: [id number] [employer]- All Rights Reserved Reading location - IP/workstation name: [email or web address]
[2018-02-10 20:46] LABS: ABSOLUTE BASOPHILS # (AUTO) 0.1 10^3/uL (0.0-0.2); ABSOLUTE EOSINOPHILS # (AUTO) 0.1 10^3/uL (0.0-0.6); ABSOLUTE LYMPHOCYTES (AUTO) 2.6 10^3/uL (0.5-4.7); ABSOLUTE MONOCYTES (AUTO) 0.6 10^3/uL (0.1-1.4); ABSOLUTE NEUT (AUTO) 5.6 10^3/uL (1.7-8.2); BASOPHILS % (AUTO) 0.7 % (0-2); EOSINOPHILS % (AUTO) 1.6 % (0-6); HEMATOCRIT 38.3 % (36.0-47.0); HEMOGLOBIN 12.7 g/dL (12.0-15.5); LYMPHOCYTES % (AUTO) 28.8 % (13-45); MEAN CORPUSCULAR HEMOGLOBIN 28.8 pg (27.0-33.4); MEAN CORPUSCULAR VOLUME 87 fl (80-97); MONOCYTES % (AUTO) 6.4 % (3-13); PLATELET COUNT 278 10^3/uL (150-450); RED CELL DISTRIBUTION WIDTH 14.3 % (11.5-14.0); SEGMENTED NEUTROPHILS % (AUTO) 62.5 % (42-78); TOTAL CELLS COUNTED % (AUTO) 100 %; WHITE BLOOD COUNT 8.9 10^3/uL (4.0-10.5)
--- NOTE | 2018-02-10 21:18 | ER Document Report ---
ED Cardiac - General Mode of Arrival: Ambulatory Information source: Patient TRAVEL OUTSIDE OF THE [place] IN LAST 30 DAYS: No <LUZ MARINA GEORGE - Last Filed: 02/10/18 21:29> <TERESA DEAN - Last Filed: 02/10/18 23:23> - General Chief Complaint: Chest Pain Stated Complaint: CHEST PAIN, NAUSEA Time Seen by Provider: 02/10/18 20:14 Notes: 32 y.o female with hypothyroidism for which she takes medications presents to the ED with nausea, SOB and center CP of onset a few weeks ago but intensifying earlier today. Pt describes her CP as a pressure to her mid-sternal region that worsens with exertion and radiates to her back between her shoulder blades. She reports that she tried taking a Valium for her sx because she thought it to be due to anxiety but was without relief. Pt also notes that she has been taking her BP recently and has found it to be elevated consistently which is abnormal for her other than when she was . Pt also notes an infection to her RT 5th finger that was seen at the Urgent Care and given an Rx for antibiotics. Pt denies any Hx of HTN, UT, DVT or PE. She also denies any family Hx of HTN. ( LUZ MARINA GEORGE) - Related Data Allergies/Adverse Reactions: Sulfa (Sulfonamide Antibiotics) Adverse Reaction (Mild, Verified 01/19/18 08:58) Nausea and Diarrhea Past Medical History - General Information source: Patient - Social History Smoking Status: Unknown if Ever Smoked Family History: Reviewed & Not Pertinent Patient has suicidal ideation: No Patient has homicidal ideation: No - Past Medical History Cardiac Medical History: Reports: Hx Hypertension Neurological Medical History: Reports: Hx Migraine Renal/ Medical History: Reports: Hx Kidney Stones - HX. Denies: Hx Peritoneal Dialysis GI Medical History: Reports: Hx Gastroesophageal Reflux Disease, Hx Hiatal Hernia Psychiatric Medical History: Reports: Hx Depression - reports anxiety Past Surgical History: Reports: Hx Section, Hx Gynecologic Surgery - D+ C, Hx Orthopedic Surgery - R ACL REPAIR - Immunizations Hx Diphtheria, Pertussis, Tetanus Vaccination: Yes <LUZ MARINA GEORGE - Last Filed: 02/10/18 21:29> Review of Systems - Review of Systems Constitutional: No symptoms reported EENT: No symptoms reported Cardiovascular: See HPI, Chest pain - Pressure Respiratory: See HPI, Short of breath Gastrointestinal: See HPI, Nausea Genitourinary: No symptoms reported Female Genitourinary: No symptoms reported Musculoskeletal: No symptoms reported Skin: See HPI, Other - known infection to RT 5th finger Hematologic/Lymphatic: No symptoms reported Neurological/Psychological: No symptoms reported -: Yes All other systems reviewed and negative <LUZ MARINA GEORGE - Last Filed: 02/10/18 21:29> - Vital signs Vitals: Temp Pulse Resp BP Pulse Ox 98.1 F 89 15 163/106 H 97 02/10/18 20:09 02/10/18 20:09 02/10/18 20:09 02/10/18 20:09 02/10/18 20:09 - Notes Notes: Physical Exam: General: Alert, appears well. HEENT: Normocephalic. Atraumatic. PERRL. Extraocular movements intact.. Neck: Supple. Non-tender. Respiratory: No respiratory distress. Equal breath sounds bilaterally. Wheezing and rhonchi bilaterally. No peripheral edema. Cardiovascular: Regular rate and rhythm. Reproducible CP to palpation. Abdominal: Normal Inspection. Non-tender. No distension. Normal Bowel Sounds. Back: Non-tender. No deformity or step off. Extremities: Moves all four extremities. Upper extremities: Normal inspection. Normal ROM. Lower extremities: Normal inspection. No edema. Normal ROM. Neurological: Normal cognition. AAOx3. Normal speech. Psychological: Normal affect. Normal Mood. Skin: Warm. Dry. Covered area of infection to RT 5th finger. (LUZ MARINA GEORGE) Course - Laboratory Result Diagrams: 02/10/18 20:25 02/10/18 20:25 <LUZ MARINA GEORGE - Last Filed: 02/10/18 21:29> - Laboratory Result Diagrams: 02/10/18 20:25 02/10/18 21:45 - Diagnostic Test Radiology reviewed: Image reviewed, Reports reviewed - Chest x-ray does not show any acute changes. - EKG Interpretation by Me EKG shows normal: Sinus rhythm, [place], Intervals, QRS Complexes, ST-T Waves Rate: Normal - 84 Rhythm: NSR <TERESA DEAN - Last Filed: 02/10/18 23:23> - Re-evaluation Re-evalutation: 02/10/18 23:15 After the breathing treatment, the patient states that she cannot tell any difference in her breathing. On auscultation, the rhonchi when the patient coughs is now gone. The wheeze that was heard earlier is almost completely gone. She is advised to cut back or stop smoking, as that is probably contributing to her symptoms. The patient reports that her blood pressure has been elevated in the past few days. She states she had high blood pressure and but otherwise does not have high blood pressure. She does take Minipress, but that is likely for her psychiatric diagnoses. (TERESA DEAN) - Vital Signs Vital signs: Temp Pulse Resp BP Pulse Ox 98.1 F 89 21 H 148/99 H 92 02/10/18 20:09 02/10/18 20:09 02/10/18 22:04 02/10/18 22:04 02/10/18 22:04 - Laboratory Laboratory results interpreted by me: 02/10/18 02/10/18 20:25 21:45 RDW 14.3 H Total Bilirubin < 0.1 L Discharge <LUZ MARINA GEORGE - Last Filed: 02/10/18 21:29> <TERESA DEAN - Last Filed: 02/10/18 23:23> - Discharge Clinical Impression: Chest wall pain, Shortness of breath, Bronchitis High blood pressure Qualifiers: Hypertension type: unspecified Qualified Code(s): I10 - Essential (primary) hypertension Condition: Stable Disposition: HOME, SELF-CARE Additional Instructions: Chest Wall Pain: Your chest pain has been diagnosed as coming from the chest wall. This is often caused by straining the muscles or joints in the chest during physical activity, direct trauma, coughing, or vigorous vomiting. Persons with arthritis are especially prone to this type of pain, due to inflammation of the cartilage joints near the breast bone. Occasionally, no cause can be found. Rest from strenuous physical activity. This kind of chest pain is usually made worse by movement of the chest. Depending on the symptoms, we may prescribe medicine for pain, muscle relaxation, and antiinflammatory effects. If the pain is new, and seems to be due to muscle strain, cold packs can help. Otherwise, apply gentle warmth to the painful area for 15 minutes every hour or two. You should contact the doctor immediately if things change. Further evaluation is needed if you develop a fever or cough, if the nature of the pain changes, or if you become short of breath. High Blood Pressure When your blood pressure was taken today it was elevated. Pre-hypertension/Hypertension: The patient has been informed that they may have pre-hypertension or Hypertension based on a blood pressure reading in the emergency department. I recommend that the patient call the primary care provider listed on their discharge instructions or a physician of their choice this wee to arrange follow up for further evaluation of possible pre- hypertension or Hypertension. Sometimes, stress or illness causes a temporary elevation of your blood pressure. We suggest that you get your blood pressure measured three more times during the next few days to see if this is more than a temporary abnormality. If your blood pressure is greater than 150/90 on each occasion, you must have treatment. Some simple things you can do to help are: If you have blood pressure medicine but aren't using it regularly, start taking it again. Get some aerobic exercise for at least 20 minutes on a daily basis. (See your doctor before beginning a new exercise program.) Eat a low-fat diet. Lose excess weight. Avoid salty foods and avoid adding salt to any of the foods you eat. Avoid diet pills, decongestants, "energizing" herbs, and other medicines that elevate blood pressure. If left untreated, hypertension greatly enhances your risk for developing heart disease and strokes. Please don't ignore this problem. Dyspnea, Nonspecific You were evaluated for shortness of breath, or dyspnea. Dyspnea has many causes, and some are more serious than others. Sometimes it's impossible to diagnose the cause of dyspnea with the tests that are available on an emergency basis. Based on our evaluation today, you do not need hospitalization now. We found no evidence of pneumonia, collapsed lung, blood clots in the lung, tumors , or heart failure. Causes of non-specific dyspnea can include asthma or bronchospasm, hyperventilation, emotional distress, heart disease, emphysema, fibrosis of the lung, and stiffness of the chest wall. In healthy individuals with a single episode, it's sometimes reasonable to do nothing but wait to see if the problem occurs again. Additional tests used to evaluate dyspnea can include cardiac stress testing, echocardiography, pulmonary function testing, CAT scan of the chest, bronchoscopy or pulmonary biopsy. Return if shortness of breath persists or worsens, or if you develop chest pain, fever, cough, confusion, or fainting. Your EKG and cardiac enzymes were normal. Your exam suggests that you have chest wall pain as a cause of the chest pain. Your shortness of breath may be related to the rhonchi and wheezes that I heard listening to your sounds. Your blood pressure appears to have been elevated now for a few days. You should get plenty of rest, drink plenty of fluids, and try to stop smoking. Follow-up with your doctor tomorrow to recheck your blood pressure and shortness of breath and chest wall pain. RETURN TO THE EMERGENCY ROOM IF ANY NEW OR WORSENING SYMPTOMS. Referrals: MARTHA PADILLA MD [Primary Care Provider] - Follow up as needed Scribe Attestation: 02/10/18 22:15 I personally performed the services described in the documentation, reviewed and edited the documentation which was dictated to the scribe in my presence, and it accurately records my words and actions. (TERESA DEAN) Scribe Documentation - Scribe Written by Marcela:: Marcela Li 02/10/18 [id number] acting as scribe for :: Feliciano <LUZ MARINA GEORGE - Last Filed: 02/10/18 21:29>
[2018-02-10] MEDS ORDERED: IPRATROPIUM/ALBUTEROL 0.5-2.5 MG/3 ML AMPUL NEB ONE (21:25)
--- NOTE | 2018-02-10 22:12 | EKG REPORT ---
SEVERITY:- NORMAL ECG - SINUS RHYTHM : Confirmed by: Eloisa Bolanos MD 10-Feb-2018 22:10:20
[2018-02-10 22:16] LABS: ALANINE AMINOTRANSFERASE 26 U/L (9-52); ALBUMIN 3.7 g/dL (3.5-5.0); ALKALINE PHOSPHATASE 71 U/L (38-126); ANION GAP 10 (5-19); ASPARTATE AMINO TRANSFERASE 20 U/L (14-36); BLOOD UREA NITROGEN 19 mg/dL (7-20); CALCIUM 10.1 mg/dL (8.4-10.2); CARBON DIOXIDE 25 mmol/L (22-30); CHLORIDE 107 mmol/L (98-107); GLUCOSE 91 mg/dL (75-110); SODIUM 142.4 mmol/L (137-145); TOTAL PROTEIN 6.6 g/dL (6.3-8.2)
[2018-02-10 22:17] LABS: BILIRUBIN,TOTAL < 0.1 mg/dL (0.2-1.3)
[2018-02-10 23:24] LABS: APPEARANCE,URINE SLIGHTLY-CLOUDY; BILIRUBIN,URINE NEGATIVE (NEGATIVE); CALCIUM OXALATE CRYSTALS,URINE MODERATE /HPF; COLOR,URINE YELLOW; GLUCOSE, URINE NEGATIVE (NEGATIVE); KETONES,URINE NEGATIVE (NEGATIVE); LEUKOCYTE ESTERASE,URINE NEGATIVE (NEGATIVE); NITRITE,URINE NEGATIVE (NEGATIVE); PROTEIN,URINE NEGATIVE (NEGATIVE); URINE SPECIFIC GRAVITY 1.018; UROBILINOGEN,URINE NEGATIVE mg/dL (<2.0)
[2018-02-11 00:49] VITALS: BP 146/102
== END 2018-02-11 00:49 | disposition home or self-care (01) ==
LOC: ER 19:55
DX: J40 Bronchitis, not specified as acute or chronic (principal); R07.89 Other chest pain; I10 Essential (primary) hypertension; R11.0 Nausea; R06.02 Shortness of breath; F17.200 Nicotine dependence, unspecified, uncomplicated; L08.9 Local infection of the skin and subcutaneous tissue, unspecified; E03.9 Hypothyroidism, unspecified; Z79.899 Other long term (current) drug therapy; Z88.2 Allergy status to sulfonamides
CPT/HCPCS: 93005; 94640; 99285; 36415; 84703; 85025; 80053; 81001; 84484; 85379; 71046; 93010; J7620

== ENCOUNTER 2018-11-17 18:55 | Emergency (ER) | payer SELFPAY ==
[2018-11-17] MEDS ORDERED: NORMAL SALINE 1000 ML 1,000 ML IV ONE (19:37)
[2018-11-17] MEDS ORDERED: DIPHENHYDRAMINE HCL 50 MG/ML VIAL IV ONE (19:37)
[2018-11-17] MEDS ORDERED: METOCLOPRAMIDE HCL INJ/PF 10 MG/2 ML SDV IV ONE (19:37)
--- NOTE | 2018-11-17 19:43 | ER Document Report ---
ED Medical Screen (RME) - General Chief Complaint: Headache Stated Complaint: NAUSEA,HEADACHE,DIZZY Time Seen by Provider: 11/17/18 19:27 Primary Care Provider: MARTHA PADILLA MD [Primary Care Provider] - Follow up as needed Mode of Arrival: Ambulatory Information source: Patient Notes: 33-year-old female presents with a headache that started 1 day prior to arrival. Patient has associated nausea and vomiting. Has tried Tylenol without with relief. I have greeted and performed a rapid initial assessment of this patient. A comprehensive ED assessment and evaluation of the patient, analysis of test results and completion of medical decision making process we will be contacted by additional ED providers. PHYSICAL EXAMINATION: Vital signs reviewed-hypertensive GENERAL: Well-appearing, well-nourished and in no acute distress. LUNGS: No respiratory distress Musculoskeletal: Normal range of motion NEUROLOGICAL: Normal speech, normal gait. Cranial nerves II through XII intact PSYCH: Normal mood, normal affect. SKIN: Warm, Dry, normal turgor, no rashes or lesions noted. TRAVEL OUTSIDE OF THE [place] IN LAST 30 DAYS: No - HPI Onset: Yesterday Onset/Duration: Gradual Quality of pain: Throbbing Severity: Moderate Associated Symptoms: Nausea, Vomiting Exacerbated by: Denies Relieved by: Denies Similar symptoms previously: No Recently seen / treated by doctor: No - Related Data Smoking: Cigarettes Frequency of alcohol use: None Drug Abuse: None Allergies/Adverse Reactions: Sulfa (Sulfonamide Antibiotics) Adverse Reaction (Mild, Verified 01/19/18 08:58) Nausea and Diarrhea Past Medical History - Past Medical History Cardiac Medical History: Reports: Hx Hypertension Denies: Hx Coronary Artery Disease, Hx Heart Attack, Hx Heart Murmur Pulmonary Medical History: Denies: Hx Asthma, Hx Bronchitis, Hx COPD, Hx Pneumonia Neurological Medical History: Reports: Hx Migraine. Denies: Hx Cerebrovascular Accident, Hx Seizures Renal/ Medical History: Reports: Hx Kidney Stones - HX. Denies: Hx Peritoneal Dialysis GI Medical History: Reports: Hx Gastroesophageal Reflux Disease, Hx Hiatal Hernia. Denies: Hx Ulcer Musculoskeltal Medical History: Denies Hx Arthritis Psychiatric Medical History: Reports: Hx Depression - reports anxiety Denies: Hx Bipolar Disorder, Hx Post Traumatic Stress Disorder, Hx Schizophrenia Infectious Medical History: Denies: Hx HIV Past Surgical History: Reports: Hx Section, Hx Gynecologic Surgery - D+C, Hx Orthopedic Surgery - R ACL REPAIR. Denies: Hx Hysterectomy, Hx Pacemaker - Immunizations Hx Diphtheria, Pertussis, Tetanus Vaccination: Yes History of Influenza Vaccine for 06/2017 - 11/2017 Season: Refused Physical Exam - Vital signs Vitals: Temp Pulse Resp BP Pulse Ox 98.3 F 102 H 16 152/111 H 96 11/17/18 18:59 11/17/18 18:59 11/17/18 18:59 11/17/18 18:59 11/17/18 18:59 Course - Vital Signs Vital signs: Temp Pulse Resp BP Pulse Ox 98.3 F 102 H 16 152/111 H 96 11/17/18 18:59 11/17/18 18:59 11/17/18 18:59 11/17/18 18:59 11/17/18 18:59 Doctor's Discharge - Discharge Referrals: MARTHA PADILLA MD [Primary Care Provider] - Follow up as needed
[2018-11-17 20:26] LABS: ABSOLUTE BASOPHILS # (AUTO) 0.1 10^3/uL (0.0-0.2); ABSOLUTE EOSINOPHILS # (AUTO) 0.2 10^3/uL (0.0-0.6); ABSOLUTE MONOCYTES (AUTO) 0.7 10^3/uL (0.1-1.4); ABSOLUTE NEUT (AUTO) 7.2 10^3/uL (1.7-8.2); BASOPHILS % (AUTO) 0.7 % (0-2); EOSINOPHILS % (AUTO) 1.6 % (0-6); HEMATOCRIT 39.6 % (36.0-47.0); HEMOGLOBIN 13.5 g/dL (12.0-15.5); LYMPHOCYTES % (AUTO) 26.9 % (13-45); MEAN CORPUSCULAR HGB CONC 34.2 g/dL (32.0-36.0); MEAN CORPUSCULAR VOLUME 88 fl (80-97); PLATELET COUNT 280 10^3/uL (150-450); RED BLOOD COUNT 4.51 10^6/uL (3.72-5.28); RED CELL DISTRIBUTION WIDTH 14.3 % (11.5-14.0); SEGMENTED NEUTROPHILS % (AUTO) 64.8 % (42-78); TOTAL CELLS COUNTED % (AUTO) 100 %; WHITE BLOOD COUNT 11.1 10^3/uL (4.0-10.5)
[2018-11-17 20:47] LABS: ANION GAP 6 (5-19); BLOOD UREA NITROGEN 13 mg/dL (7-20); CALCIUM 9.7 mg/dL (8.4-10.2); CARBON DIOXIDE 27 mmol/L (22-30); CHLORIDE 105 mmol/L (98-107); GLUCOSE 107 mg/dL (75-110); SODIUM 138.3 mmol/L (137-145)
[2018-11-17 21:26] LABS: APPEARANCE,URINE SLIGHTLY-CLOUDY; BILIRUBIN,URINE NEGATIVE (NEGATIVE); COLOR,URINE YELLOW; GLUCOSE, URINE NEGATIVE (NEGATIVE); KETONES,URINE NEGATIVE (NEGATIVE); LEUKOCYTE ESTERASE,URINE NEGATIVE (NEGATIVE); NITRITE,URINE NEGATIVE (NEGATIVE); PROTEIN,URINE NEGATIVE (NEGATIVE); URINE SPECIFIC GRAVITY 1.028; UROBILINOGEN,URINE NEGATIVE mg/dL (<2.0)
--- NOTE | 2018-11-17 21:40 | RADIOLOGY REPORT (SQ) ---
EXAM DESCRIPTION: CT HEAD WITHOUT IV CONTRAST COMPLETED DATE/TME: 11/17/2018 19:41 CLINICAL HISTORY: 33 years, Female, headache This exam was performed according to our departmental dose-optimization program which includes automated exposure control, adjustment of the mA and/or kVp according to patient size and/or use of iterative reconstruction technique where applicable. FINDINGS: No acute intracranial hemorrhage, mass effect or midline shift. No extra-axial fluid collections. Ventricles and subarachnoid spaces are preserved. Dasilva-white matter differentiation is preserved. Visualized paranasal sinuses demonstrate 2.3 cm polyp in left maxillary sinus. And the mastoid air cells are clear. The skull is intact. IMPRESSION: No acute intracranial hemorrhage.
[2018-11-17 21:45] VITALS: BP 155/102
[2018-11-17] MEDS ORDERED: KETOROLAC TROMETHAMINE INJ/PF 30 MG/1 ML SDV IV ONE (22:22)
[2018-11-17] MEDS ORDERED: METHOCARBAMOL INJ/PF 1000 MG/10 ML SDV IV ONE (22:22)
--- NOTE | 2018-11-17 22:28 | ER Document Report ---
ED General - General Chief Complaint: Headache Stated Complaint: NAUSEA,HEADACHE,DIZZY Time Seen by Provider: 11/17/18 19:27 Primary Care Provider: MARTHA PADILLA MD [Primary Care Provider] - Follow up as needed Mode of Arrival: Ambulatory TRAVEL OUTSIDE OF THE [place] IN LAST 30 DAYS: No - HPI Notes: Patient presents to the emergency department for evaluation of a headache. She states it is in the back of her head and wraps around to the top. She woke with it yesterday. She states is been constant since then. It is not worsened by bright light or loud noises. She describes it as a tightness, rates it a 3 of 5 on the pain scale. She has had 3 episodes of nonbloody, nonbilious emesis with this in the last 24 hours. She denies any associated fever. She states she has had a cough for roughly a year, after being diagnosed with influenza last year. She does continue to smoke. She denies any visual changes. No difficulty speaking or swallowing. Moving her arms and legs without difficulty. No dizziness. No recent head injuries. Patient states that she has been told in the past at doctor's offices that her blood pressure was elevated. She is actually not seen her doctor in nearly a year as she has lost her insurance. She also used to be treated with Synthroid and T3 for hypothyroidism. She has not taken that medication in the last several months. - Related Data Allergies/Adverse Reactions: Sulfa (Sulfonamide Antibiotics) Adverse Reaction (Mild, Verified 01/19/18 08:58) Nausea and Diarrhea Past Medical History - General Information source: Patient - Not formally diagnosed, never treated, but has had multiple elevated blood pressures in doctors offices in the past - Social History Smoking Status: Current Every Day Smoker Frequency of alcohol use: None Drug Abuse: None Family History: Reviewed & Not Pertinent Patient has suicidal ideation: No Patient has homicidal ideation: No - Past Medical History Cardiac Medical History: Reports: Hx Hypertension Denies: Hx Coronary Artery Disease, Hx Heart Attack, Hx Heart Murmur Pulmonary Medical History: Denies: Hx Asthma, Hx Bronchitis, Hx COPD, Hx Pneumonia Neurological Medical History: Reports: Hx Migraine. Denies: Hx Cerebrovascular Accident, Hx Seizures Endocrine Medical History: Reports: Hx Hypothyroidism Renal/ Medical History: Reports: Hx Kidney Stones - HX. Denies: Hx Peritoneal Dialysis GI Medical History: Reports: Hx Gastroesophageal Reflux Disease, Hx Hiatal Hernia. Denies: Hx Ulcer Musculoskeletal Medical History: Denies Hx Arthritis Psychiatric Medical History: Reports: Hx Depression - reports anxiety Denies: Hx Bipolar Disorder, Hx Post Traumatic Stress Disorder, Hx Schizophrenia Infectious Medical History: Denies: Hx HIV Past Surgical History: Reports: Hx Section, Hx Gynecologic Surgery - D+C, Hx Orthopedic Surgery - R ACL REPAIR. Denies: Hx Hysterectomy, Hx Pacemaker - Immunizations Hx Diphtheria, Pertussis, Tetanus Vaccination: Yes Review of Systems - Review of Systems Constitutional: No symptoms reported EENT: No symptoms reported Cardiovascular: No symptoms reported Respiratory: See HPI Gastrointestinal: See HPI Genitourinary: No symptoms reported Female Genitourinary: No symptoms reported Musculoskeletal: No symptoms reported Skin: No symptoms reported Neurological/Psychological: No symptoms reported Physical Exam - Vital signs Vitals: Temp Pulse Resp BP Pulse Ox 98.3 F 102 H 16 152/111 H 96 11/17/18 18:59 11/17/18 18:59 11/17/18 18:59 11/17/18 18:59 11/17/18 18:59 Interpretation: Hypertensive - Notes Notes: Vital signs reviewed, please refer to chart. Patient is normocephalic, atraumatic. Pupils equal round, reactive to light. Neck is supple without meningismus. She does have tenderness to palpation at the base of the occiput, right greater than left. This reproduces her headache symptoms. Heart is regular rate and rhythm. Lungs are clear to auscultation bilaterally. Abdomen is soft, nontender, normoactive bowel sounds throughout. Extremities without cyanosis, clubbing, edema. Peripheral pulses are equal. Skin is warm and dry. Patient is awake, alert, oriented x3. Cranial nerves II through XII are grossly intact without focal neurological deficits. Strength is plus 5 out of 5 bilateral upper and lower extremities. Reflexes are symmetrical. Sensation is intact. Gait was within normal limits. Course - Re-evaluation Re-evalutation: 11/17/18 22:26 Patient presents to the emergency department for evaluation. She had initial orders as placed by triage. She does have some minimal improvement in her pain. I did review her laboratory investigations which were unremarkable. CT scan failed to show any acute intracranial hemorrhage or other etiology of her headache. At this point I do strongly suspect a tension headache. We did discuss further treatment which may help. We also discussed her blood pressure. I suspect this is been a long-standing, undiagnosed issue. She agrees that is possible. She understands the possible consequences of untreated hypertension and asks for medication. I am amenable to starting her on a very short course of hydrochlorothiazide at this time. We will also recheck her TSH. Patient resting comfortably, will recheck. 11/17/18 23:50 Patient's TSH is significantly elevated. I will restart her on Synthroid 50 mcg. I will also start her on low-dose HCTZ. She is feeling improved after Robaxin and Toradol. I will send her home with anti-inflammatories, p.o. Robaxin. She is strongly encouraged to follow-up with primary care. We talked about consequences of untreated high blood pressure and she voiced understanding. She is to return to the ED with worsening or new concerning symptoms of any sort. - Vital Signs Vital signs: Temp Pulse Resp BP Pulse Ox 98.3 F 88 16 155/102 H 98 11/17/18 18:59 11/17/18 21:45 11/17/18 21:45 11/17/18 21:45 11/17/18 21:45 - Laboratory Result Diagrams: 11/17/18 20:17 11/17/18 20:17 Laboratory results interpreted by me: 11/17/18 11/17/18 20:17 20:17 WBC 11.1 H RDW 14.3 H TSH 27.70 H Discharge - Discharge Clinical Impression: Hypothyroidism Qualifiers: Hypothyroidism type: unspecified Qualified Code(s): E03.9 - Hypothyroidism, unspecified Hypertension Qualifiers: Hypertension type: unspecified Qualified Code(s): I10 - Essential (primary) hypertension Tension type headache Qualifiers: Headache chronicity pattern: acute headache Condition: Stable Disposition: HOME, SELF-CARE Instructions: Headache ([facility]), Toradol Injection ([facility]), Reglan ([facility]), High Blood Pressure ([facility]) Additional Instructions: Take medications as prescribed. Follow-up with your primary care physician in 1-2 weeks. Return to the emergency department with worsening or new concerning symptoms of any sort. Referrals: MARTHA PADILLA MD [Primary Care Provider] - Follow up as needed
== END 2018-11-18 00:28 | disposition home or self-care (01) ==
LOC: ER 18:55
DX: E03.9 Hypothyroidism, unspecified (principal); I10 Essential (primary) hypertension; R51 Headache; R11.0 Nausea; R42 Dizziness and giddiness; F17.200 Nicotine dependence, unspecified, uncomplicated
CPT/HCPCS: 99284; 96361; 96375; 96365; 36415; 84443; 85025; 81025; 80048; 81001; 70450; J1200; J2800; J1885; J2765; J7030